=== PATIENT | male | born 1965 | race Asian ===

== ENCOUNTER 2018-02-12 05:06 | Emergency (ER) | payer OTHER ==
[~2018-02-12] VITALS: Ht 172.7 cm; Wt 86.2 kg
[~2018-02-12 05:06] MED LIST: ALPR0.5T PO
[2018-02-12 05:12] VITALS: BP_SYST 126
[2018-02-12] MEDS ORDERED: DEXAMETHASONE SOD PHOSPHATE 10 MG/ML VIAL ONE (05:32)
[2018-02-12] MEDS ORDERED: DEXAMETHASONE SOD PHOSPHATE 10 MG/ML VIAL IVP ONE (05:45)
[2018-02-12] MEDS ORDERED: DIPHENHYDRAMINE INJ 50 MG/ML VIAL IVP ONE (06:15)
[2018-02-12] MEDS ORDERED: NACL 0.9% 1,000 ML IV ONE (06:15)
[2018-02-12] MEDS ORDERED: FAMOTIDINE PF 20 MG/2 ML VIAL IVP ONE (06:30)
[2018-02-12 07:13] VITALS: BP_SYST 123
== END 2018-02-12 07:13 | disposition home or self-care (01) ==
LOC: SED 05:06
DX: T88.1XXA Other complications following immunization, not elsewhere classified, initial encounter (principal); L27.0 Generalized skin eruption due to drugs and medicaments taken internally; T50.Z95A Adverse effect of other vaccines and biological substances, initial encounter; Y92.89 Other specified places as the place of occurrence of the external cause
CPT/HCPCS: 96374; 96375; 99284; J1100; J1200; J3490; J7030

== ENCOUNTER 2020-11-14 19:06 | Emergency (ER) | payer OTHER ==
[~2020-11-14] VITALS: Ht 165.1 cm; Wt 88.0 kg
[2020-11-14 19:06] VITALS: BP_SYST 139
--- NOTE | 2020-11-14 19:06 | NUR ---
Placed in room 2 . Placed on secured entrance monitor, blood pressure machine and pulse oximeter. To gown for exam. Side rails up. Report given to Danni METZ.
--- NOTE | 2020-11-14 19:10 | NUR ---
Dr. Neves at bedside for evaluation.
--- NOTE | 2020-11-14 19:10 | NUR ---
Patient AAOx4 via ambulatory c/o allergic reaction to [place] stinger was removed. Patient stung on left middle finger. rash and hives noted to upper bilateral extremities. patient complaining of throat tightness and swollen mouth. patient stated being SOB and having substernal chest pain. currently stating 7/10 on the pain scale.
--- NOTE | 2020-11-14 19:12 | NUR ---
EPI 0.3 given IM to right deltoid.
[2020-11-14] MEDS ORDERED: EPINEPHrine 1 MG/ML AMP ONE (19:13)
[2020-11-14] MEDS ORDERED: RACEPINEPHRINE HCL 0.5 ML VIAL.NEB INH ONE (19:15)
[2020-11-14] MEDS ORDERED: IPRATROPIUM/ALBUTEROL SULFATE 3 ML AMPUL.NEB (DUONEB) INH ONE (19:15)
[2020-11-14] MEDS ORDERED: EPINEPHrine 1 MG/ML VIAL IM ONE (19:15)
[2020-11-14] MEDS ORDERED: FAMOTIDINE PF 20 MG/2 ML VIAL IVP ONE (19:15)
[2020-11-14] MEDS ORDERED: methylPREDNISolone SOD SUCC/PF 62.5 MG/ML VIAL IVP ONE (19:15)
[2020-11-14] MEDS ORDERED: DIPHENHYDRAMINE INJ 50 MG/ML VIAL IVP ONE (19:15)
--- NOTE | 2020-11-14 19:15 | NUR ---
# 18 gauge angiocath placed to RAC. Use of asceptic technique. Opsite placed over site. Blood return noted. Flushed with 10 cc of normal saline. No evidence of infiltration noted. Patient tolerated well.
[2020-11-14] MEDS ORDERED: DIPHENHYDRAMINE INJ 50 MG/ML VIAL ONE (19:17)
[2020-11-14] MEDS ORDERED: FAMOTIDINE PF 20 MG/2 ML VIAL ONE (19:18)
[2020-11-14] MEDS ORDERED: methylPREDNISolone SOD SUCC/PF 62.5 MG/ML VIAL ONE (19:19)
--- NOTE | 2020-11-14 19:32 | NUR ---
Respiratory at bedside to give breathing treatment.
[2020-11-14] MEDS ORDERED: NACL 0.9% 1,000 ML IV ONE (20:00)
--- NOTE | 2020-11-14 21:00 | NUR ---
Patient resting quietly. No acute distress noted. Vital signs within normal range.
[2020-11-14] MEDS ORDERED: PRED20TA PO ×2 (21:44→22:35)
[2020-11-14] MEDS ORDERED: FAMO40TA71 PO ×2 (21:44→22:35)
[2020-11-14] MEDS ORDERED: EPIN0.3P3 IM ×2 (21:44→22:35)
[2020-11-14] MEDS ORDERED: DIPH25TA62 PO ×2 (21:44→22:35)
[2020-11-14 22:44] VITALS: BP_SYST 132
--- NOTE | 2020-11-14 22:46 | NUR ---
Patient given written and verbal discharge instructions and verbalizes understanding. DR. JACKELYN PAPPAS MD discussed with patient the results and treatment provided. Patient in stable condition. ID arm band removed. IV catheter removed intact and dressing applied, no active bleeding. Rx of BENADRYL, EPIPEN, PEPCID, PREDNISONE given. Patient educated on pain management and to follow up with PMD. Pain Scale 0/10. Opportunity for questions provided and answered. Medication side effect fact sheet provided.
== END 2020-11-14 22:44 | disposition home or self-care (01) ==
LOC: SED 19:06
DX: T78.2XXA Anaphylactic shock, unspecified, initial encounter (principal); T63.441A Toxic effect of venom of bees, accidental (unintentional), initial encounter; Z79.899 Other long term (current) drug therapy; Y92.89 Other specified places as the place of occurrence of the external cause
CPT/HCPCS: 94640; 96361; 96372; 96374; 96375; 99291; J0171; J1200; J2930; J3490; J7030; 93005; 99285